=== PATIENT | male | born 1930 | race Caucasian/White ===

== ENCOUNTER 2017-02-09 06:43 | Day surgery (SDC) | payer MEDICARE, OTHER ==
[~2017-02-09] VITALS: Ht 182.9 cm; Wt 89.1 kg
[~2017-02-09 06:43] MED LIST: ASA CHILDREN'S81 MG PO; NORVASC5 MG PO; VITAMIN D31000 UNIT PO
--- NOTE | 2017-02-10 08:10 | OR ---
ADMIT: 02/09/2017 RM/LOC: [facility] MR#: [id number] [address] [address] [place] [address] Operative/Delivery Room Report SEX: M AGE: 86 : 1930 SURGERY DATE: 02/09/2017 SURGEON: Julisa Lazo MD FROG CATCHER: None. PREPROCEDURE DIAGNOSES: 1. Cervical spondylosis. 2. Cervicalgia. POSTPROCEDURE DIAGNOSES: 1. Cervical spondylosis. 2. Cervicalgia. PROCEDURE PERFORMED: Right C2, C3, C4 and C5 cervical radiofrequency ablation. INDICATIONS FOR PROCEDURE: The patient is a pleasant gentleman with history of chronic neck pain with headaches secondary to above-mentioned diagnoses comes here for planned right-sided cervical radiofrequency ablation. ANESTHESIA: Local without sedation. ESTIMATED BLOOD LOSS: Zero. COMPLICATIONS: None immediately evident. DESCRIPTION OF PROCEDURE: After the patient was seen in the preoperative area, vitals signs were taken. Prior to the procedure, the risks, benefits, and alternative therapies were discussed at length. Patient consent was obtained and updated. The patient was taken to the fluoroscopy suite and placed on the fluoroscopy table in the prone position. Pressure points were padded to comfort, monitors applied, and a timeout performed. The patient's jaw turned to the left side. The patient's cervical area was then prepped and draped sterilely using ChloraPrep. C-arm fluoroscopy was then brought in to identify the C2-C3 junction, C3 waist, C4 waist, and C5 waist on ADMIT: 02/09/2017 RM/LOC: [facility] MR#: [id number] [address] [address] [place] [address] Operative/Delivery Room Report SEX: M AGE: 86 : 1930 the right side. A 22-gauge 3.5-inch curved-tip spinal needle was then advanced through the anesthetize skin and made contact with C2-C3 junction, C3 waist, C4 waist and C5 waist on the right side. Once we obtained appropriate parameters for sensory motor testing, we proceeded with radiofrequency coagulation at each level, which consisted of 80 degrees for 90 seconds at each level. The patient tolerated the procedure well and had no complications. The patient was taken to the PACU where he recovered nicely. PLAN: Discharge instructions were given, followup scheduled. The patient was discharged home with a motor pool driver. Julisa Lazo MD/ aydee JOB #: [id number] CC: Julisa Lazo, Attending Physician Babak Seals, Family Physician
== END 2017-02-09 10:28 | disposition home or self-care (01) ==
LOC: SSS 06:43
PROC: 3E0T3TZ Introduction of Destructive Agent into Peripheral Nerves and Plexi, Percutaneous Approach (ICD-10-PCS; principal; 2017-02-09)
PROC: BR14YZZ Fluoroscopy of Cervical Facet Joint(s) using Other Contrast (ICD-10-PCS; principal; 2017-02-09)
DX: G89.29 Other chronic pain (principal); M47.812 Spondylosis without myelopathy or radiculopathy, cervical region; Z79.899 Other long term (current) drug therapy; Z79.891 Long term (current) use of opiate analgesic; Z79.82 Long term (current) use of aspirin